=== PATIENT | male | born 1930 | race Caucasian/White ===

== ENCOUNTER 2018-06-18 03:24 | Inpatient (IN) ==
[2018-06-18] MEDS ORDERED: CEFEPIME 2,000 MG in SODIUM CHLORIDE 0.9% 100 ML IV STA (03:26)
[2018-06-18] MEDS ORDERED: SODIUM CHLORIDE 0.9% 1,000 ML IV STA ×2 (03:26→05:55)
[2018-06-18] MEDS ORDERED: VANCOMYCIN INJ 1,000 MG in SODIUM CHLORIDE 0.9% 250 ML IV STA ×2 (03:26→03:32)
[2018-06-18] MEDS ORDERED: ACETAMINOPHEN 500 MG TABLET PO STA (03:49)
[2018-06-18 04:04] LABS: Basophils % 0.1 % (0.0-0.8); Eosinophils # 0.1 10*3/uL (0.0-0.87); Eosinophils % 0.4 % (0.00-10.9); Hemoglobin 12.3 GM/DL (14.0-18.0); Immature Granulocytes % 0.6 %; Immature Granulocytes Absolute 0.09 #; Lymphocytes # 0.6 10*3/uL (1.4-4.0); Lymphocytes % 3.8 % (21.2-54.2); Mean Corpuscular HGB Conc 32.4 GM/DL (32-36); Mean Corpuscular Hemoglobin 32 PG (27-34); Mean Corpuscular Volume 99.7 FL (87-102); Monocytes # 0.8 10*3/uL (0.11-0.8); Monocytes % 4.9 % (1.7-12.7); Neutrophils # 14.1 10*3/uL (1.4-7.4); Neutrophils % 90.2 % (38.7-73.9); Platelet Count 173 T/CUMM (130-400); Red Blood Count 3.81 MC/CUMM (3.8-5.5); Red Cell Distribution Width 12.9 % (9.3-17.3); White Blood Count 15.6 T/CUMM (4-12)
[2018-06-18 04:11] LABS: Albumin 3.2 G/DL (3.4-5.0); Bilirubin,Total 1.1 MG/DL (0.2-1.0); Osmolality,Calculated 278.4 MOS/KG (273-304); Potassium 3.8 MMOL/L (3.5-5.1); Total Protein 6.7 G/DL (6.4-8.3)
[2018-06-18] MEDS ORDERED: ACETAMINOPHEN 325 MG TABLET PO PRN (04:43)
[2018-06-18] MEDS ORDERED: ONDANSETRON 4 MG/2 ML VIAL IV PRN (04:43)
[2018-06-18 05:02] LABS: Platelet Estimate Normal
[2018-06-18] MEDS ORDERED: NOREPINEPHRINE 8 MG in SODIUM CHLORIDE 0.9% 242 ML IV PRN ×2 (06:02→06:30)
[2018-06-18] MEDS ORDERED: NOREPINEPHRINE 4 MG/4 ML VIAL IV ONE (06:08)
[2018-06-18 06:31] LABS: Amorphous Crystals,Urine Occasional /HPF (Few); Apearance,Urine CLEAR (Clear); Bilirubin,Urine Negative (Negative); Blood, Urine Negative (Negative); Glucose,Urine (UA) Negative (Negative); Hyaline Casts,Urine 4 /LPF (0-3); Ketones,Urine Negative (Negative); Mucus,Urine Occasional /LPF (Occasional); Nitrite,Urine Negative (Negative); Protein,Urine Negative; RBC,Urine <1 /HPF (0-4); Urine Color Yellow (Yellow); Urine Specific Gravity 1.011 (1.001-1.035); Urine Urobilinogen < 2.0 EU/DL (0.2-1.0)
[2018-06-18 07:02] LABS: Band Neutrophils 2 % (0-10); Lymphocytes 3 % (20-55); Segmented Neutrophils 93 % (50-85); Total Cells Counted 100
[2018-06-18] MEDS: SODIUM CHLORIDE 0.9% 1,000 ML IV SCH ×3 (07:14→23:40)
[2018-06-18] MEDS ORDERED: CALCIUM GLUCONATE 2,000 MG in SODIUM CHLORIDE 0.9% 100 ML IV ONE (07:47)
[2018-06-18] MEDS ORDERED: VANCOMYCIN INJ 750 MG in SODIUM CHLORIDE 0.9% 250 ML IV ONE (11:00)
[2018-06-18] MEDS: ALBUTEROL/IPRATROPIUM 3 ML NEB RESP TX SCH ×2 (12:12→18:55)
[2018-06-18] MEDS: CEFEPIME 2,000 MG in SODIUM CHLORIDE 0.9% 100 ML IV SCH ×2 (14:37→22:42)
[2018-06-18] MEDS: BUDESONIDE 0.5 MG/2 ML NEB RESP TX SCH (18:55)
[2018-06-18] MEDS: POTASSIUM CHLORIDE 20 MEQ TABLET PO SCH (21:16)
[2018-06-18] MEDS: SIMVASTATIN 20 MG TABLET PO SCH (21:16)
[2018-06-19 04:58] LABS: Basophils % 0.2 % (0.0-0.8); Eosinophils # 0.2 10*3/uL (0.0-0.87); Eosinophils % 2.4 % (0.00-10.9); Hematocrit 33.6 VOL% (42.0-52.0); Hemoglobin 10.6 GM/DL (14.0-18.0); Immature Granulocytes % 0.8 %; Immature Granulocytes Absolute 0.07 #; Lymphocytes # 0.9 10*3/uL (1.4-4.0); Lymphocytes % 11.1 % (21.2-54.2); Mean Corpuscular HGB Conc 31.5 GM/DL (32-36); Mean Corpuscular Hemoglobin 32 PG (27-34); Mean Corpuscular Volume 102.4 FL (87-102); Mean Platelet Volume 9.8 FL (9.6-12.0); Monocytes # 0.7 10*3/uL (0.11-0.8); Neutrophils # 6.4 10*3/uL (1.4-7.4); Neutrophils % 77.5 % (38.7-73.9); Platelet Count 126 T/CUMM (130-400); Red Blood Count 3.28 MC/CUMM (3.8-5.5); White Blood Count 8.3 T/CUMM (4-12)
[2018-06-19 05:14] LABS: Albumin 2.5 G/DL (3.4-5.0); Bilirubin,Total 0.8 MG/DL (0.2-1.0); Calcium 7.9 MG/DL (8.5-10.1); Osmolality,Calculated 279.7 MOS/KG (273-304); Potassium 3.6 MMOL/L (3.5-5.1); Total Protein 5.6 G/DL (6.4-8.3)
[2018-06-19] MEDS: CEFEPIME 2,000 MG in SODIUM CHLORIDE 0.9% 100 ML IV SCH ×3 (05:54→22:07)
[2018-06-19] MEDS: SODIUM CHLORIDE 0.9% 1,000 ML IV SCH (05:55)
[2018-06-19] MEDS: ALBUTEROL/IPRATROPIUM 3 ML NEB RESP TX SCH ×3 (06:47→21:05)
[2018-06-19] MEDS: BUDESONIDE 0.5 MG/2 ML NEB RESP TX SCH ×2 (06:47→21:05)
[2018-06-19] MEDS: POLYETHYLENE GLYCOL POWDER 17 GM PACK PO SCH (09:16)
[2018-06-19] MEDS: POTASSIUM CHLORIDE 20 MEQ TABLET PO SCH ×2 (09:16→20:58)
[2018-06-19] MEDS: ASPIRIN EC 81 MG TABLET PO SCH (09:16)
[2018-06-19] MEDS: FUROSEMIDE 20 MG TABLET PO SCH (09:16)
[2018-06-19] MEDS: VANCOMYCIN INJ 1,750 MG in SODIUM CHLORIDE 0.9% 500 ML IV SCH ×2 (11:07→23:46)
[2018-06-19] MEDS ORDERED: SODIUM CHLORIDE 0.9% 100 ML IV ONE (15:22)
[2018-06-19] MEDS: SIMVASTATIN 20 MG TABLET PO SCH (20:57)
[2018-06-20 04:54] LABS: Basophils % 0.4 % (0.0-0.8); Eosinophils # 0.4 10*3/uL (0.0-0.87); Eosinophils % 4.9 % (0.00-10.9); Hematocrit 34.6 VOL% (42.0-52.0); Hemoglobin 11.1 GM/DL (14.0-18.0); Immature Granulocytes % 0.5 %; Immature Granulocytes Absolute 0.04 #; Lymphocytes # 1.3 10*3/uL (1.4-4.0); Mean Corpuscular HGB Conc 32.1 GM/DL (32-36); Mean Corpuscular Hemoglobin 33 PG (27-34); Mean Corpuscular Volume 101.2 FL (87-102); Mean Platelet Volume 10.1 FL (9.6-12.0); Monocytes # 0.4 10*3/uL (0.11-0.8); Monocytes % 5.3 % (1.7-12.7); Neutrophils # 5.3 10*3/uL (1.4-7.4); Neutrophils % 71.9 % (38.7-73.9); Platelet Count 140 T/CUMM (130-400); Red Blood Count 3.42 MC/CUMM (3.8-5.5); White Blood Count 7.4 T/CUMM (4-12)
[2018-06-20 05:26] LABS: Calcium 8.3 MG/DL (8.5-10.1); Osmolality,Calculated 281.4 MOS/KG (273-304); Potassium 4.1 MMOL/L (3.5-5.1)
[2018-06-20] MEDS: CEFEPIME 2,000 MG in SODIUM CHLORIDE 0.9% 100 ML IV SCH ×3 (05:52→22:10)
[2018-06-20] MEDS: ALBUTEROL/IPRATROPIUM 3 ML NEB RESP TX SCH ×3 (07:26→19:58)
[2018-06-20] MEDS: BUDESONIDE 0.5 MG/2 ML NEB RESP TX SCH ×2 (07:26→19:58)
[2018-06-20] MEDS: POTASSIUM CHLORIDE 20 MEQ TABLET PO SCH ×2 (09:00→22:09)
[2018-06-20] MEDS: POLYETHYLENE GLYCOL POWDER 17 GM PACK PO SCH (09:00)
[2018-06-20] MEDS: ASPIRIN EC 81 MG TABLET PO SCH (09:00)
[2018-06-20] MEDS: FUROSEMIDE 20 MG TABLET PO SCH (09:00)
[2018-06-20] MEDS: VANCOMYCIN INJ 1,750 MG in SODIUM CHLORIDE 0.9% 500 ML IV SCH ×2 (11:23→23:27)
[2018-06-20] MEDS: SIMVASTATIN 20 MG TABLET PO SCH (22:10)
[2018-06-20] MEDS ORDERED: MAGNESIUM SULF RIDER 1 GM in PREMIX 1 EACH IV ONE (22:45)
[2018-06-21 04:58] LABS: Albumin 2.3 G/DL (3.4-5.0); Bilirubin,Total 0.8 MG/DL (0.2-1.0); Calcium 8.3 MG/DL (8.5-10.1); Osmolality,Calculated 278.7 MOS/KG (273-304); Potassium 4.8 MMOL/L (3.5-5.1); Total Protein 5.9 G/DL (6.4-8.3)
[2018-06-21] MEDS: CEFEPIME 2,000 MG in SODIUM CHLORIDE 0.9% 100 ML IV SCH ×3 (06:29→21:43)
[2018-06-21] MEDS: ALBUTEROL/IPRATROPIUM 3 ML NEB RESP TX SCH ×2 (07:34→13:05)
[2018-06-21] MEDS: BUDESONIDE 0.5 MG/2 ML NEB RESP TX SCH (07:35)
[2018-06-21] MEDS: FUROSEMIDE 20 MG TABLET PO SCH (08:58)
[2018-06-21] MEDS: POLYETHYLENE GLYCOL POWDER 17 GM PACK PO SCH (08:58)
[2018-06-21] MEDS: ASPIRIN EC 81 MG TABLET PO SCH (08:58)
[2018-06-21] MEDS: POTASSIUM CHLORIDE 20 MEQ TABLET PO SCH ×2 (08:58→21:44)
[2018-06-21] MEDS: VANCOMYCIN INJ 1,750 MG in SODIUM CHLORIDE 0.9% 500 ML IV SCH (11:40)
[2018-06-21] MEDS: methylPREDNISolone SOD SUC 40 MG/1 ML VIAL IV SCH (21:43)
[2018-06-21] MEDS: SIMVASTATIN 20 MG TABLET PO SCH (21:43)
[2018-06-22] MEDS: ALBUTEROL/IPRATROPIUM 3 ML NEB RESP TX SCH ×5 (00:55→20:15)
[2018-06-22] MEDS: BUDESONIDE 0.5 MG/2 ML NEB RESP TX SCH ×3 (03:15→20:15)
[2018-06-22] MEDS: VANCOMYCIN INJ 1,500 MG in SODIUM CHLORIDE 0.9% 500 ML IV SCH ×2 (04:42→15:55)
[2018-06-22 05:47] LABS: Albumin 2.8 G/DL (3.4-5.0); Bilirubin,Total 0.5 MG/DL (0.2-1.0); Calcium 9.1 MG/DL (8.5-10.1); Osmolality,Calculated 280.8 MOS/KG (273-304); Potassium 4.9 MMOL/L (3.5-5.1); Total Protein 6.9 G/DL (6.4-8.3)
[2018-06-22] MEDS: methylPREDNISolone SOD SUC 40 MG/1 ML VIAL IV SCH ×2 (08:43→20:55)
[2018-06-22] MEDS: CEFEPIME 2,000 MG in SODIUM CHLORIDE 0.9% 100 ML IV SCH ×3 (09:50→22:07)
[2018-06-22] MEDS: ASPIRIN EC 81 MG TABLET PO SCH (09:53)
[2018-06-22] MEDS: POTASSIUM CHLORIDE 20 MEQ TABLET PO SCH ×2 (09:53→20:55)
[2018-06-22] MEDS: FUROSEMIDE 20 MG TABLET PO SCH (09:54)
[2018-06-22] MEDS: POLYETHYLENE GLYCOL POWDER 17 GM PACK PO SCH (09:55)
[2018-06-22] MEDS: SIMVASTATIN 10 MG TABLET PO SCH (20:55)
[2018-06-22] MEDS: SOTALOL 80 MG TABLET PO SCH (23:20)
[2018-06-23] MEDS: ALBUTEROL/IPRATROPIUM 3 ML NEB RESP TX SCH ×4 (01:18→19:26)
[2018-06-23] MEDS: VANCOMYCIN INJ 1,500 MG in SODIUM CHLORIDE 0.9% 500 ML IV SCH (03:38)
[2018-06-23 05:01] LABS: Albumin 2.7 G/DL (3.4-5.0); Bilirubin,Total 0.6 MG/DL (0.2-1.0); Calcium 8.9 MG/DL (8.5-10.1); Osmolality,Calculated 279.1 MOS/KG (273-304); Potassium 5.2 MMOL/L (3.5-5.1); Total Protein 6.6 G/DL (6.4-8.3)
[2018-06-23] MEDS: CEFEPIME 2,000 MG in SODIUM CHLORIDE 0.9% 100 ML IV SCH (06:00)
[2018-06-23] MEDS: BUDESONIDE 0.5 MG/2 ML NEB RESP TX SCH ×2 (07:18→19:26)
[2018-06-23] MEDS: POTASSIUM CHLORIDE 20 MEQ TABLET PO SCH (08:40)
[2018-06-23] MEDS: POLYETHYLENE GLYCOL POWDER 17 GM PACK PO SCH (08:40)
[2018-06-23] MEDS: methylPREDNISolone SOD SUC 40 MG/1 ML VIAL IV SCH ×2 (08:52→21:03)
[2018-06-23] MEDS: TAMSULOSIN 0.4 MG CAPSULE PO SCH (08:57)
[2018-06-23] MEDS: SOTALOL 80 MG TABLET PO SCH ×2 (08:57→21:02)
[2018-06-23] MEDS: ASPIRIN EC 81 MG TABLET PO SCH (08:57)
[2018-06-23] MEDS: metOLazone 2.5 MG TABLET PO SCH (08:58)
[2018-06-23] MEDS: FUROSEMIDE 20 MG TABLET PO SCH (08:58)
[2018-06-23] MEDS: FOLIC ACID 1 MG TABLET PO SCH (08:58)
[2018-06-23] MEDS ORDERED: METHOTREXATE 2.5 MG TABLET PO SCH (09:00)
[2018-06-23] MEDS ORDERED: FUROSEMIDE 40 MG TABLET PO SCH (13:56)
[2018-06-23] MEDS: FUROSEMIDE 40 MG/4 ML VIAL IV SCH (14:18)
[2018-06-23 16:39] LABS: Calcium 9.1 MG/DL (8.5-10.1); Osmolality,Calculated 279.1 MOS/KG (273-304); Potassium 4.7 MMOL/L (3.5-5.1)
[2018-06-23] MEDS: SIMVASTATIN 10 MG TABLET PO SCH (21:02)
[2018-06-24] MEDS: ALBUTEROL/IPRATROPIUM 3 ML NEB RESP TX SCH ×2 (00:27→07:29)
[2018-06-24] MEDS ORDERED: methylPREDNISolone SOD SUC 40 MG/1 ML VIAL IV ONE ×2 (01:19→01:20)
[2018-06-24 06:27] LABS: Albumin 3.2 G/DL (3.4-5.0); Bilirubin,Total 0.6 MG/DL (0.2-1.0); Calcium 9.2 MG/DL (8.5-10.1); Osmolality,Calculated 281.2 MOS/KG (273-304); Potassium 4.7 MMOL/L (3.5-5.1)
[2018-06-24] MEDS: BUDESONIDE 0.5 MG/2 ML NEB RESP TX SCH (07:29)
[2018-06-24] MEDS: FOLIC ACID 1 MG TABLET PO SCH (08:00)
[2018-06-24] MEDS: POLYETHYLENE GLYCOL POWDER 17 GM PACK PO SCH (08:00)
[2018-06-24] MEDS: SOTALOL 80 MG TABLET PO SCH (08:00)
[2018-06-24] MEDS: metOLazone 2.5 MG TABLET PO SCH (08:00)
[2018-06-24] MEDS: ASPIRIN EC 81 MG TABLET PO SCH (08:00)
[2018-06-24 08:01] VITALS: BP 147/76
[2018-06-24] MEDS: methylPREDNISolone SOD SUC 40 MG/1 ML VIAL IV SCH (08:01)
[2018-06-24] MEDS: TAMSULOSIN 0.4 MG CAPSULE PO SCH (08:01)
[2018-06-24] MEDS: FUROSEMIDE 40 MG/4 ML VIAL IV SCH (08:01)
== END 2018-06-24 10:45 | disposition home health service (06) | DRG 872 ==
LOC: EDBD → EDUNIT# → N.ED 03:24 → N.EDINP 04:43 → N.ICU 06:28 → N.TELEN 06-19 13:30
PROVIDERS: ADMIT Family Medicine; ATTEND Family Medicine